=== PATIENT | female | born 1990 | race Caucasian/White ===

== ENCOUNTER 2018-08-17 14:27 | Outpatient (CLI) | payer OTHER | END 2018-08-17 14:28 | disposition home or self-care (01) | LOC: DTY/OP 14:27 | PROVIDERS: ATTEND Surgery | DX: E66.01 Morbid (severe) obesity due to excess calories (principal) | CPT/HCPCS: 97802 ==

== ENCOUNTER 2018-08-28 01:20 | Outpatient (CLI) | payer OTHER ==
--- NOTE | 2018-08-28 16:32 | RAD ---
2 view chest: CLINICAL HISTORY: Preoperative evaluation COMPARISON: None FINDINGS: There is no focal consolidation, effusion, or pneumothorax. Cardiac silhouette is normal in size. No acute osseous abnormality. IMPRESSION: No focal consolidation.
[2018-08-28 16:45] LABS: #Eosinphils 0.2 thou/uL (0.0-0.7); #Lymphocytes 3.2 thou/uL (1.20-3.40); #Monocytes 0.6 thou/uL (0.11-0.59); #Neutrophils 7.4 thou/uL (1.40-6.50); %Basophils 0.4 % (0.0-1.0); %Eosinophils 1.8 % (0.0-10.0); %Monocytes 5.5 % (0.0-10.0); %Neutrophils 64.2 % (42.0-75.0); Hemoglobin 12.7 g/dL (12.0-16.0); Mean Corpuscular HGB CONC 34.3 g/dL (32.0-36.0); Mean Corpuscular Hemoglobin 29.7 pg (27.0-31.0); Mean Corpuscular Volume 86.5 fL (78.0-98.0); Platelet Count 253 thou/uL (130-400); RBC Distribution Width 12.8 % (11.5-14.5); Red Blood Cell (RBC) Count 4.29 mill/uL (4.20-5.40); White Blood Cell (WBC) Count 11.5 thou/uL (4.8-10.8)
[2018-08-28 16:49] LABS: BHCG - Serum Negative (NEGATIVE); Pregs Control Background? CLEAR/WHITE (CLR/WHITE); Pregs Control Bar Appear? YES (CONTROL BAR)
[2018-08-28 17:01] LABS: ALT (SGPT) 17 U/L (8-55); AST (SGOT) 17 U/L (5-34); Albumin 4.2 g/dL (3.5-5.0); Alkaline Phosphatase 58 U/L (40-150); Anion Gap 12 mmol/L (10-20); BUN (Urea Nitrogen) 14 mg/dL (7.0-18.7); Bilirubin, Direct 0.1 mg/dL (0.1-0.3); Bilirubin, Total 0.3 mg/dL (0.2-1.2); Calc. Creatinine Clearance 0 mL/min (70-130); Calcium 9.8 mg/dL (7.8-10.44); Carbon Dioxide 26 mmol/L (22-29); Chloride 103 mmol/L (98-107); Estimated GFR-MDRD 84; Globulin 3.4 g/dL (2.4-3.5); Glucose 89 mg/dL (70-105); Potassium 3.7 mmol/L (3.5-5.1); Protein, Total 7.6 g/dL (6.0-8.3); Sodium 137 mmol/L (136-145)
--- NOTE | 2018-08-30 11:59 | EKG ---
Test Reason : Blood Pressure : / mmHG Vent. Rate : 080 BPM Atrial Rate : 080 BPM P-R Int : 158 ms QRS Dur : 090 ms QT Int : 384 ms P-R-T Axes : 053 081 005 degrees QTc Int : 442 ms Normal sinus rhythm with sinus arrhythmia T wave abnormality, consider inferior ischemia Abnormal ECG No previous ECGs available Confirmed by DR. Timoteo KAISER ([id number]) on 08/30/2018 11:58:54 AM Referred By: SERGEI Confirmed By:DR. Timoteo KAISER
== END 2018-08-28 01:21 | disposition home or self-care (01) ==
LOC: LABBT 01:20
PROVIDERS: ATTEND Surgery
DX: Z01.818 Encounter for other preprocedural examination (principal); E66.01 Morbid (severe) obesity due to excess calories
CPT/HCPCS: 71046; 80053; 80076; 83036; 84703; 85025; 93005; 93010

== ENCOUNTER 2018-08-28 17:15 | Inpatient (IN) | payer OTHER ==
[2018-08-28 15:37] VITALS: BMI 44.0
[2018-09-05] MEDS ORDERED: Heparin 5,000 UNITS/ML VIAL ONE (11:36)
[2018-09-05] MEDS ORDERED: Fentanyl 100 MCG/2 ML VIAL ONE ×5 (12:02→16:08)
[2018-09-05] MEDS ORDERED: Bupivacaine/Epinephrine 0.25% 30 ML VIAL ONE (12:10)
[2018-09-05] MEDS ORDERED: Ondansetron PF 4 MG/2 ML Vial ONE ×2 (12:46→14:33)
[2018-09-05] MEDS ORDERED: Glycopyrrolate 0.2 MG/ML 5 ML SYRINGE ONE (12:46)
[2018-09-05] MEDS ORDERED: Lidocaine 2% PF 5 ML VIAL ONE (12:46)
[2018-09-05] MEDS ORDERED: Ketorolac Tromethamine 30 MG/ML VIAL ONE (12:46)
[2018-09-05] MEDS ORDERED: Rocuronium Bromide 10 MG/ML (10ML VIAL) ONE (12:46)
[2018-09-05] MEDS ORDERED: Dexamethasone 20 MG/5 ML VIAL ONE (12:46)
[2018-09-05] MEDS ORDERED: PROPOFOL 200 MG/20 ML VIAL ONE (12:46)
[2018-09-05] MEDS ORDERED: diphenhydrAMINE 50 MG/ML VIAL IVP PRN ×3 (14:03→14:37)
[2018-09-05] MEDS ORDERED: hydrALAZINE 20 MG/ML VIAL SLOW IVP PRN (14:03)
[2018-09-05] MEDS ORDERED: Dextrose 50% Abboject 50 ML SYRINGE SLOW IVP PRN (14:03)
[2018-09-05] MEDS ORDERED: Promethazine HCl 25 MG/ML VIAL IM PRN ×3 (14:03→14:37)
[2018-09-05] MEDS ORDERED: Dextrose 5% in Water 1,000 ML IV PRN (14:03)
[2018-09-05] MEDS ORDERED: Ondansetron PF 4 MG/2 ML Vial IVP PRN ×2 (14:03→14:36)
[2018-09-05] MEDS ORDERED: Hydrocodone-Acetamin 15 ML UDCUP PO PRN (14:03)
[2018-09-05] MEDS ORDERED: Promethazine HCl 25 MG/ML VIAL ONE (14:11)
[2018-09-05] MEDS ORDERED: Ondansetron HCl/PF 4 MG/2 ML Vial IVP PRN (14:20)
[2018-09-05] MEDS ORDERED: diphenhydrAMINE 25 MG CAP PO PRN ×2 (14:36→14:37)
[2018-09-05] MEDS ORDERED: HYDROmorphone 10 mg/100 ml CADD IVPB PRN (14:36)
[2018-09-05] MEDS ORDERED: Zolpidem Tartrate 5 MG TAB PO PRN ×2 (14:36→14:37)
[2018-09-05] MEDS ORDERED: Naloxone HCl 0.4 mg/ml Vial IV PRN ×2 (14:36→14:37)
[2018-09-05] MEDS ORDERED: diphenhydrAMINE 50 MG/ML VIAL IM PRN ×2 (14:36→14:37)
[2018-09-05] MEDS ORDERED: Sodium Chloride 0.9% (PF) 10 ML VIAL FS PRN (14:42)
[2018-09-05] MEDS ORDERED: Communication Order-Pharmacy FS SCH ×2 (14:45)
[2018-09-05] MEDS ORDERED: D5 1/2 NS w/20 mEq KCL 1,000 ML ONE (15:04)
--- NOTE | 2018-09-05 15:44 | OP ---
DATE OF PROCEDURE: 09/05/2018 PREOPERATIVE DIAGNOSIS: Morbid obesity. PROCEDURE PERFORMED: Laparoscopic sleeve gastrectomy with esophagogastroscopy. INDICATIONS: A 28-year-old female morbidly obese, who has attempted multiple weight loss programs without success. FINDINGS: A 38-Estonian bougie used. DESCRIPTION OF PROCEDURE: After informed consent was obtained, the patient was taken to the operating room and given general endotracheal anesthesia placed in supine position. Abdomen was prepped and draped in usual fashion. Local anesthesia infiltrated subcutaneously and deep. A 12 mm incision was performed approximately 8 inches below the xiphoid slightly to left. Veress needle inserted. Drop test performed. Pneumoperitoneum was created to a volume of 2 L of carbon dioxide. Using a bladeless 12 mm trocar and 0-degree laparoscope, direct visual entry into the abdominal cavity was performed. Pneumoperitoneum was then created to a pressure of 15 mmHg. The patient was placed in steep reverse Trendelenburg position. Desiree liver retractor inserted. Left lobe of liver retracted superiorly. Pylorus identified. A 12 mm port placed on the right beneath it, two 12s placed left subcostal. The omentum was taken off the greater curvature 5 cm from the pylorus utilizing the LigaSure. Short gastrics divided with the LigaSure and the left crura defined with the LigaSure. A 38-E[place]ian bougie inserted, directed into the antrum. The linear 60 mm green load stapler used to divide the antrum to the bougie, gold load along the bougie, and a series of blues through the angle of His. Intraoperative endoscopy was performed. The video endoscope inserted under direct vision and advanced into the sleeve. Staple line inspected. There was no bleeding. Staple line then tested by inflating the new stomach with pressurized air under water. There was no air leak. Stomach decompressed. Scope removed. The remnant stomach removed from the abdomen through the left lateral port site. The fascia closed with 0 Vicryl suture and the GraNee needle. Trocars and retractors removed. Skin closed with interrupted 4-0 Rapide. Dermabond applied. The patient tolerated the procedure well, transferred to Recovery in good condition. Sponge and needle count verified correct x2. Job ID: [id number]
[2018-09-05] MEDS: D5 1/2 NS w/20 mEq KCL 1,000 ML IV SCH ×2 (17:18→23:21)
[2018-09-05] MEDS: Ketorolac Tromethamine 30 MG/ML VIAL IVP SCH ×2 (17:57→23:20)
[2018-09-05] MEDS: Ondansetron PF 4 MG/2 ML Vial IVP PRN (18:00)
[2018-09-05] MEDS: CEFAZOLIN 2 GM in Premix Bag 1 BAG IVPB SCH (20:16)
[2018-09-06] MEDS: Ondansetron PF 4 MG/2 ML Vial IVP PRN ×2 (00:03→17:56)
[2018-09-06] MEDS: D5 1/2 NS w/20 mEq KCL 1,000 ML IV SCH ×3 (04:10→18:03)
[2018-09-06] MEDS: CEFAZOLIN 2 GM in Premix Bag 1 BAG IVPB SCH (04:10)
[2018-09-06] MEDS: Ketorolac Tromethamine 30 MG/ML VIAL IVP SCH ×2 (05:19→11:40)
[2018-09-06 05:52] LABS: #Lymphocytes 2.4 thou/uL (1.20-3.40); #Monocytes 0.8 thou/uL (0.11-0.59); #Neutrophils 15.1 thou/uL (1.40-6.50); %Basophils 0.2 % (0.0-1.0); %Eosinophils 0.2 % (0.0-10.0); %Lymphocytes 12.8 % (21.0-51.0); %Monocytes 4.4 % (0.0-10.0); %Neutrophils 82.4 % (42.0-75.0); Hemoglobin 10.5 g/dL (12.0-16.0); Mean Corpuscular HGB CONC 32.2 g/dL (32.0-36.0); Mean Corpuscular Hemoglobin 28.1 pg (27.0-31.0); Mean Corpuscular Volume 87.3 fL (78.0-98.0); Mean Platelet Volume 9.2 fL (7.4-10.4); Platelet Count 308 thou/uL (130-400); Red Blood Cell (RBC) Count 3.76 mill/uL (4.20-5.40); White Blood Cell (WBC) Count 18.3 thou/uL (4.8-10.8)
[2018-09-06 06:02] LABS: Anion Gap 14 mmol/L (10-20); BUN (Urea Nitrogen) 15 mg/dL (7.0-18.7); Calc. Creatinine Clearance 111 mL/min (70-130); Calcium 8.7 mg/dL (7.8-10.44); Carbon Dioxide 22 mmol/L (22-29); Chloride 101 mmol/L (98-107); Estimated GFR-MDRD 49; Glucose 137 mg/dL (70-105); Potassium 3.9 mmol/L (3.5-5.1); Sodium 133 mmol/L (136-145)
[2018-09-06] MEDS ORDERED: Sodium Chloride 0.9% 500 ML IV SCH (07:45)
[2018-09-06] MEDS: Pantoprazole 40 MG VIAL IVP SCH (08:07)
[2018-09-06] MEDS: Enoxaparin Sodium 40 MG/0.4 ML SYRINGE SC SCH (08:07)
--- NOTE | 2018-09-06 08:48 | RAD ---
XR UGI Single Contrast No Air HISTORY: Recent vertical sleeve gastric surgery. Post bariatric surgery evaluation Procedure: Single sip swallow study was performed with administration of 15 mL contrast under fluoros copy. FINDINGS: Contrast traverses the gastroesophageal junction with delay. No leak or evidence of high-gr linwood obstruction. IMPRESSION: Findings suggestive of partial obstruction, likely due to postoperative edema.
[2018-09-06] MEDS ORDERED: GASTROGRAFIN 30 ML BOT ONE (11:36)
[2018-09-06] MEDS: Hydrocodone-Acetamin 15 ML UDCUP PO PRN ×3 (12:32→21:40)
[2018-09-06] MEDS ORDERED: Sodium Chloride 0.9% 1,000 ML IV SCH (14:30)
[2018-09-06] MEDS ORDERED: Diazepam 10 MG/2 ML SYRINGE IVP PRN (17:18)
[2018-09-06] MEDS ORDERED: chlorproMAZINE HCl 50 MG/2 ML AMP IM PRN (18:30)
--- NOTE | 2018-09-06 23:35 | CON ---
DATE OF CONSULTATION: 09/06/2018 REASON FOR CONSULTATION: Urinary retention. HISTORY OF PRESENT ILLNESS: Ms. So is a 28-year-old female who is postoperative day #1 status post gastric sleeve procedure. She has no prior urologic history. Postoperatively, the patient was able to void small amounts and subsequently was unable to void. A bladder scan demonstrated approximately 300 mL within her bladder per the nurse. In and out Patel catheterization was performed with very minimal volume. This was performed on 2 different occasions and each time they did this, there was very minimal urine output present. An indwelling Patel was placed this morning after she voided approximately 100 mL and since then only had 40 mL of urine output. Bladder scan continued to reveal approximately 250 mL and therefore Urology was consulted for further evaluation. The patient was given a 500 mL bolus earlier today and her urine output did not increase. Prior to this, she denies urinary frequency, urgency, or urinary incontinence. She has had no other pelvic surgeries other than a . No history of kidney stones. No gross hematuria. No other complaints. REVIEW OF SYSTEMS: Full 12-point review of systems was performed and is negative other than that mentioned in HPI. PAST MEDICAL HISTORY: Hypothyroidism and hypertension. PAST SURGICAL HISTORY: x2. MEDICATIONS: No home medications currently. FAMILY HISTORY: Noncontributory. SOCIAL HISTORY: Has one alcoholic beverage per day. No tobacco use. No drugs. ALLERGIES: SULFA. PHYSICAL EXAMINATION: VITAL SIGNS: Temperature 98.1, pulse 90, respirations 16, oxygen saturation 98% on room air, blood pressure 126/81. GENERAL: She is alert and oriented x3. No apparent distress. HEENT: Normocephalic, atraumatic. NECK: Supple. No masses or lymphadenopathy. CARDIOVASCULAR: Regular rate and rhythm. PULMONARY: Breathing unlabored. ABDOMEN: Soft, appropriately tender to palpation. Nondistended. Incision clean/dry/intact. GENITOURINARY: Patel catheter in place, draining clear yellow urine. EXTREMITIES: Warm and well perfused. No edema. NEUROLOGIC: No focal deficits. LABORATORY DATA: White blood cell count 18.3, hemoglobin 10.5, hematocrit 32.8, platelets 308. Sodium 133, potassium 3.9, chloride 101, bicarb 22, BUN 15, creatinine 1.28. ASSESSMENT: A 28-year-old female with oliguria and questionable urinary retention. PLAN: It is unclear whether the patient actually had urinary retention or not. She reported she did have an urge to urinate, but was unable to go after attempts at in and out catheterization. The patient currently has an indwelling Patel. This was irrigated under sterile conditions at the bedside without difficulty and was confirmed to be in the correct location. Her urine appears somewhat concentrated. Her creatinine was 1.28 this morning. We will repeat a creatinine to ensure this is not climbing. She is receiving q.6-hour Toradol. The patient may be volume contracted at this time and just simply have low urine output. Bladder scan may be picking up on free fluid within the pelvis which would be a normal finding postoperatively. I do not see any reason why the current indwelling Patel catheter would not have a correct amount of output. Her urine output appears to be increasing. We will give her an additional 1 L bolus of normal saline and monitor her urine output. If urine output picks up, Patel catheter can be discontinued at the discretion of the primary team. If the patient is subsequently unable to void, a Patel may need to be replaced and she will require outpatient followup with Urology. Thank you for allowing me to participate in the care of this patient. Job ID: [id number]
[2018-09-07] MEDS ORDERED: Sodium Chloride 0.9% 1,000 ML IV SCH (07:30)
[2018-09-07] MEDS: D5 1/2 NS w/20 mEq KCL 1,000 ML IV SCH ×2 (08:12→15:28)
[2018-09-07] MEDS: Enoxaparin Sodium 40 MG/0.4 ML SYRINGE SC SCH (09:24)
[2018-09-07] MEDS: Pantoprazole 40 MG VIAL IVP SCH (09:25)
[2018-09-07] MEDS ORDERED: Acetaminophen/Codeine 120-12MG/5 ML UDCUP PO PRN ×2 (11:40→12:56)
[2018-09-07 16:22] VITALS: BP 119/78; TEMP 98.1
--- NOTE | 2018-09-08 11:14 | DIS ---
DATE OF ADMISSION: 09/05/2018 DATE OF DISCHARGE: 09/07/2018 DISCHARGE DIAGNOSES: 1. Morbid obesity. 2. Postoperative urinary retention. PROCEDURES DURING ADMISSION: Laparoscopic sleeve gastrectomy, intraoperative esophagogastroscopy, and postoperative Gastrografin swallow. HOSPITAL COURSE: The patient was admitted, taken to the operating room, underwent sleeve gastrectomy. Initial Gastrografin swallow showed some postoperative edema. She had difficulties getting enough in and also developed urinary retention. A Patel was placed. Then, after further hydration was able to remove that and she is voiding well. She is tolerating liquids well. Pain controlled on Tylenol with Codeine elixir. She will follow up with me in 2 weeks. Job ID: [id number]
== END 2018-09-07 17:40 | disposition home or self-care (01) | DRG 621 ==
LOC: SURG A 09-05 09:57 → EDSTATUS 09-05 17:15
PROVIDERS: ADMIT Surgery; ATTEND Surgery
PROC: 0DB64Z3 Excision of Stomach, Percutaneous Endoscopic Approach, Vertical (ICD-10-PCS; principal; 2018-09-05)
PROC: 0DJ08ZZ Inspection of Upper Intestinal Tract, Via Natural or Artificial Opening Endoscopic (ICD-10-PCS; 2018-09-05)
DX: E66.01 Morbid (severe) obesity due to excess calories (principal); Z68.41 Body mass index [BMI] 40.0-44.9, adult; E03.9 Hypothyroidism, unspecified; I10 Essential (primary) hypertension; Z88.2 Allergy status to sulfonamides
CPT/HCPCS: 36415; 74241; 80048; 85025; 88307; 88312; 94760; C9113; J0131; J0690; J1100; J1644; J1650; J1885; J2001; J2405; J2550; J2704; J3010; J3230; J3360; Q9963

== ENCOUNTER → 2018-09-09 | Day surgery (SDC) | payer OTHER, SELFPAY ==
[~2018-09-09] MED LIST: Multivit, Adult Inj 10 ML VIAL ONE
== END ==
LOC: SCSER 14:13 → EDSTATUS 14:44 → SCSER/OP 14:45
PROVIDERS: ATTEND Emergency Medicine
DX: E86.0 Dehydration (principal)

== ENCOUNTER → 2018-09-11 | Day surgery (SDC) | payer OTHER ==
[~2018-09-11] MED LIST changes: +Ondansetron PF 4 MG/2 ML Vial ONE
== END ==
LOC: SCSER/OP 09:09
PROVIDERS: ATTEND Emergency Medicine
DX: Z51.89 Encounter for other specified aftercare (principal); E28.2 Polycystic ovarian syndrome; F32.9 Major depressive disorder, single episode, unspecified; Z98.84 Bariatric surgery status; Z88.2 Allergy status to sulfonamides
CPT/HCPCS: J2405

== ENCOUNTER 2018-09-22 12:43 | Day surgery (SDC) | payer OTHER ==
[2018-09-22] MEDS ORDERED: Multivit, Adult Inj 10 ML VIAL ONE (13:45)
== END 2018-09-22 15:04 | disposition home or self-care (01) ==
LOC: SCSER/OP 12:43
PROVIDERS: ATTEND Surgery
DX: Z51.89 Encounter for other specified aftercare (principal); E28.2 Polycystic ovarian syndrome; F32.9 Major depressive disorder, single episode, unspecified; Z98.84 Bariatric surgery status; Z88.2 Allergy status to sulfonamides

== ENCOUNTER 2020-02-13 13:18 | Outpatient (CLI) | payer OTHER ==
--- NOTE | 2020-02-13 14:42 | ULT ---
EXAM: US Breast Limited Rt PROVIDED CLINICAL HISTORY: Right breast palpable abnormality COMPARISON: Diagnostic mammogram 02/13/2020 FINDINGS: Limited sonographic interrogation was performed of the right breast in the region of palpable concern . There is a circumscribed, smoothly marginated mildly echogenic mass at the 12:00 position of the right breast in the region of palpable concern measuring approximately 1.6 cm. Given that no mass is evident on mammography in this region, this is compatible with lipoma. IMPRESSION: Sonographic findings compatible with lipoma. Negative or benign imaging findings should not preclude further evaluation of a clinically suspicious abnormality. The patient is referred back to her clinician. BI-RADS 2 -- benign findings
--- NOTE | 2020-02-13 14:42 | MMO ---
Bilateral MAMMO Bilat Diag [facility]. CLINICAL HISTORY: Patient is 29 years old and is seen for diagnostic exam and palpable abnormality in the right breast. The patient has no family history of breast cancer. The patient has no personal history of cancer. VIEWS: The views performed were: bilateral craniocaudal with tomosynthesis; bilateral mediolateral oblique with tomosynthesis; and bilateral mediolateral with tomosynthesis. FILMS COMPARED: The present examination has been compared to a prior imaging study performed at [facility] on 02/13/2020. This study has been interpreted with the assistance of computer-aided detection. MAMMOGRAM FINDINGS: There are scattered fibroglandular densities. There are no mammographic abnormalities in the area of palpable concern. The patient is referred back to her clinician. Negative imaging findings should not preclude biopsy if clinical findings are suspicious. There are no suspicious masses, suspicious calcifications, or areas of architectural distortion. IMPRESSION: THERE ARE NO MAMMOGRAPHIC ABNORMALITIES IN THE AREA OF PALPABLE CONCERN. THE PATIENT IS REFERRED BACK TO HER CLINICIAN. NEGATIVE IMAGING FINDINGS SHOULD NOT PRECLUDE BIOPSY IF CLINICAL FINDINGS ARE SUSPICIOUS. THE RESULTS OF THIS EXAM WERE SENT TO THE PATIENT. ACR BI-RADS Category 2 - Benign finding MAMMOGRAPHY NOTE: 1. A negative mammogram report should not delay a biopsy if a dominant of clinically suspicious mass is present. 2. Approximately 10% to 15% of breast cancers are not detected by mammography. 3. Adenosis and dense breasts may obscure an underlying neoplasm. Reported by: KAYODE OLVERA MD Electonically Signed: [id number]
== END 2020-02-13 13:19 | disposition home or self-care (01) ==
LOC: BICMAMMO 13:18
PROVIDERS: ATTEND Obstetrics & Gynecology
DX: N63.10 Unspecified lump in the right breast, unspecified quadrant (principal)
CPT/HCPCS: 77066; G0279